=== PATIENT | male | born 1960 | race Hispanic/Latino ===

== ENCOUNTER 2017-10-11 21:06 | Emergency (ER) | payer OTHER ==
[2017-10-11 22:25] LABS: BASOPHILS % (AUTO) 0.9 % (0.0-5.0); EOSINOPHILS % (AUTO) 2.6 % (0.0-8.0); HEMATOCRIT 37.7 % (42-54); LYMPHOCYTES % (AUTO) 42.6 % (21.0-51.0); MEAN CORPUSCULAR HGB CONC 35.7 g/dL (32.0-36.0); MEAN CORPUSCULAR VOLUME 95.2 fL (79-99); MONOCYTES % (AUTO) 9.6 % (3.0-13.0); NEUTROPHILS % (AUTO) 44.3 % (40.0-77.0); PLATELET COUNT (AUTO) 203 K/uL (130-400); RED BLOOD CELL COUNT(AUTO) 3.96 MIL/uL (4.50-6.20); RED CELL DISTRIBUTION WIDTH 12.9 % (11.0-15.5); WHITE BLOOD COUNT (AUTO) 6.7 K/uL (4.8-10.8)
[2017-10-11 22:37] LABS: CREATININE 0.8 mg/dL (0.5-1.5); POTASSIUM 3.9 mmol/L (3.5-5.1)
[2017-10-11 22:48] LABS: ALBUMIN 3.6 g/dL (3.5-5.0); BILIRUBIN,TOTAL 0.2 mg/dL (0.2-1.0)
[2017-10-11 23:03] LABS: APPEARANCE,URINE Clear (CLEAR); BILIRUBIN,URINE Negative (NEGATIVE); COLOR,URINE Yellow (YELLOW); GLUCOSE, URINE (UA) Negative (NEGATIVE); KETONES,URINE Negative (NEGATIVE); LEUKOCYTE ESTERASE ,URINE Negative (NEGATIVE); NITRATE,URINE Negative (NEGATIVE); OCCULT BLOOD,URINE Negative (NEGATIVE); PROTEIN,URINE Negative (NEGATIVE); UROBILINOGEN,URINE 0.2 mg/dL (0.2-1.0)
== END 2017-10-11 23:52 | disposition home or self-care (01) ==
LOC: EDH 21:06
DX: R10.9 Unspecified abdominal pain (principal); Z98.890 Other specified postprocedural states
CPT/HCPCS: 36415; 74176; 80053; 81003; 83690; 85025

== ENCOUNTER 2022-03-21 16:16 | Inpatient (IN) | payer OTHER ==
[~2022-03-21] VITALS: Ht 175.3 cm; Wt 110.8 kg
[2022-03-21 16:43] LABS: BASOPHILS % (AUTO) 0.8 % (0.0-5.0); HEMATOCRIT 43.3 % (42-54); LYMPHOCYTES % (AUTO) 12.7 % (21.0-51.0); MEAN CORPUSCULAR HEMOGLOBIN 30.6 pg (27.0-33.0); MEAN CORPUSCULAR VOLUME 92.5 fL (79-99); MONOCYTES % (AUTO) 8.4 % (3.0-13.0); NEUTROPHILS % (AUTO) 72.3 % (40.0-77.0); NUCLEATED RED BLOOD CELLS 0.2 % (0.0-0.19); PLATELET COUNT (AUTO) 240 K/uL (130-400); RED BLOOD CELL COUNT(AUTO) 4.68 MIL/uL (4.50-6.20); RED CELL DISTRIBUTION WIDTH 12.7 % (11.0-15.5); WHITE BLOOD COUNT (AUTO) 11.8 K/uL (4.8-10.8)
[2022-03-21 16:53] LABS: CREATININE 0.8 mg/dL (0.5-1.5); POTASSIUM 3.8 mmol/L (3.5-5.1)
[2022-03-21 17:01] LABS: ALBUMIN 3.1 g/dL (3.5-5.0); MAGNESIUM 1.8 mg/dL (1.80-2.40); TOTAL PROTEIN, SERUM 7.4 g/dL (6.0-8.3)
[2022-03-21 17:12] LABS: B-TYPE NATRIURETIC PEPTIDE 82 pg/mL (0-100)
[2022-03-21 17:29] LABS: ABG BASE EXCESS -0.2 mmol/L (-2.0-3.0); ABG HCO3 24.2 mmol/L (21.0-28.0); ABG OXYGEN SATURATION 92.4 % (95.0-99.0); ABG PCO2 39 mmHg (35-48)
[2022-03-21] MEDS ORDERED: ASPIRIN 81MG CHEW TAB PO ONE ×2 (17:30→18:30)
[2022-03-21] MEDS ORDERED: FUROSEMIDE 40MG VIAL IV ONE ×2 (17:30→23:00)
[2022-03-21 17:45] LABS: APPEARANCE,URINE CLEAR (CLEAR); BILIRUBIN,URINE NEGATIVE (NEGATIVE); COLOR,URINE YELLOW (YELLOW); GLUCOSE, URINE (UA) NEGATIVE (NEGATIVE); KETONES,URINE NEGATIVE (NEGATIVE); LEUKOCYTE ESTERASE ,URINE NEGATIVE Leu/uL (NEGATIVE); NITRATE,URINE NEGATIVE (NEGATIVE); OCCULT BLOOD,URINE SMALL (NEGATIVE); PH,URINE 5.5 (5.0-8.0); PROTEIN,URINE 30 mg/dL (NEGATIVE); UROBILINOGEN,URINE 0.2 mg/dL (0.2-1.0)
[2022-03-21 17:47] LABS: MUCUS,URINE RARE LPF (None Seen); WBC,URINE 0-1 /HPF (0-1)
[2022-03-21 17:53] LABS: AMPHET/METH SCREEN,URINE NEGATIVE (NEGATIVE); BARBITURATE SCREEN, URINE NEGATIVE (NEGATIVE); BENZODIAZEPINES SCREEN,URINE NEGATIVE (NEGATIVE); CANNABINOID SCREEN,URINE NEGATIVE (NEGATIVE); COCAINE SCREEN,URINE NEGATIVE (NEGATIVE); OPIATE SCREEN,URINE NEGATIVE (NEGATIVE); PHENCYCLIDINE SCREEN,URINE NEGATIVE (NEGATIVE)
[2022-03-21] MEDS ORDERED: AZITHROMYCIN 250 MG TABLET PO ONE (18:00)
[2022-03-21] MEDS ORDERED: CEFTRIAXONE 1G VIAL IVP ONE (18:00)
[2022-03-21] MEDS ORDERED: MORPHINE 4 MG SYG IV PRN (18:30)
[2022-03-21] MEDS ORDERED: ACETAMINOPHEN 325 MG TAB PO PRN (18:30)
[2022-03-21] MEDS ORDERED: MORPHINE 2 MG SYG IV PRN (18:30)
[2022-03-21] MEDS ORDERED: ONDANSETRON 4MG INJ IV PRN (18:30)
[2022-03-21] MEDS ORDERED: LACTATED RINGERS IV ONE (18:30)
[2022-03-21] MEDS ORDERED: SOLU-MEDROL 125MG VIAL IVP ONE (18:30)
[2022-03-21] MEDS: NITROGLYCERIN 1GM OINT 1 INCH/1GM TD SCH (19:17)
[2022-03-21] MEDS ORDERED: IOHEXOL 350 MG/ML 100ML INFUS..BTL IV ONE (19:27)
[2022-03-21 21:10] VITALS: BP 166/127
[2022-03-21] MEDS: FAMOTIDINE 20MG VIAL IV SCH (21:36)
[2022-03-21] MEDS: DOXYCYCLINE 100MG+NS 250ML IV SCH (22:41)
[2022-03-21] MEDS ORDERED: LORAZEPAM 2 MG/ML 1 ML VIAL IM ONE (23:00)
[2022-03-22] VITALS (7 sets, daily range): BP systolic 154–176; BP diastolic 108–138
[2022-03-22] MEDS: SOLU-MEDROL 40MG VIAL IVP SCH ×3 (01:16→17:30)
[2022-03-22] MEDS: NITROGLYCERIN 1GM OINT 1 INCH/1GM TD SCH ×3 (04:06→17:32)
[2022-03-22 04:16] LABS: BASOPHILS % (AUTO) 0.3 % (0.0-5.0); EOSINOPHILS % (AUTO) 0.1 % (0.0-8.0); HEMATOCRIT 44.9 % (42-54); LYMPHOCYTES % (AUTO) 6.6 % (21.0-51.0); MEAN CORPUSCULAR HEMOGLOBIN 30.3 pg (27.0-33.0); MEAN CORPUSCULAR HGB CONC 32.3 g/dL (32.0-36.0); MEAN CORPUSCULAR VOLUME 93.7 fL (79-99); NEUTROPHILS % (AUTO) 90.7 % (40.0-77.0); PLATELET COUNT (AUTO) 266 K/uL (130-400); RED BLOOD CELL COUNT(AUTO) 4.79 MIL/uL (4.50-6.20); RED CELL DISTRIBUTION WIDTH 12.6 % (11.0-15.5); WHITE BLOOD COUNT (AUTO) 11.9 K/uL (4.8-10.8)
[2022-03-22 04:51] LABS: CREATININE 0.9 mg/dL (0.5-1.5); MAGNESIUM 1.6 mg/dL (1.80-2.40); PHOSPHORUS 4.2 mg/dL (2.5-4.9); POTASSIUM 3.9 mmol/L (3.5-5.1); THYROID STIMULATING HORMONE 1.81 uIU/mL (0.36-3.74)
[2022-03-22] MEDS: IPRATROPIUM/ALBUTEROL SULFATE 3 ML SOLUTION IH SCH ×4 (06:41→23:47)
[2022-03-22] MEDS ORDERED: MAGNESIUM 2GM PREMIX 50ML 50 ML IV ONE (08:28)
[2022-03-22] MEDS: DOXYCYCLINE 100MG+NS 250ML IV SCH ×2 (08:39→20:59)
[2022-03-22] MEDS: FAMOTIDINE 20MG VIAL IV SCH ×2 (08:42→19:58)
[2022-03-22] MEDS ORDERED: ENOXAPARIN SODIUM 40 MG/0.4 ML SYRINGE SQ SCH (09:00)
[2022-03-22] MEDS ORDERED: POTASSIUM CHLORIDE 10% ELIXIR 20 MEQ/15 ML UDCUP PO PRN (09:00)
[2022-03-22] MEDS ORDERED: ASPIRIN 81MG CHEW TAB PO SCH (09:00)
[2022-03-22] MEDS ORDERED: MAGNESIUM 2GM PREMIX 50ML 50 ML IV SCH (09:00)
[2022-03-22] MEDS ORDERED: LIDOCAINE HCL-MPF 1% 2ML VIAL IV PRN (09:00)
[2022-03-22] MEDS ORDERED: KCL 20 MEQ ERTAB PO PRN (09:00)
[2022-03-22] MEDS ORDERED: POTASSIUM CHLORIDE 20MEQ/100ML 100 ML IV PRN (09:00)
[2022-03-22] MEDS: GUAIFENESIN-DM 200/20 MG 10 ML PO PRN ×2 (09:12→15:35)
[2022-03-22] MEDS: CHLORDIAZEPOXIDE HCL 25 MG CAP PO SCH ×2 (15:30→19:58)
[2022-03-22] MEDS ORDERED: AMLODIPINE 5 MG TAB PO SCH ×2 (15:30→21:00)
[2022-03-22] MEDS ORDERED: AMLODIPINE 5 MG TAB ONE (15:34)
[2022-03-22] MEDS ORDERED: METOPROLOL TARTRATE 25 MG TAB PO SCH ×2 (18:00→21:00)
[2022-03-22] MEDS ORDERED: LOSARTAN 25 MG TABLET PO SCH (18:00)
[2022-03-22] MEDS ORDERED: CEFTRIAXONE 1G VIAL IVP SCH (18:00)
[2022-03-22] MEDS ORDERED: ACETAZOLAMIDE SODIUM 500 MG VIAL IV SCH (18:00)
[2022-03-22] MEDS ORDERED: GUAIFENESIN-CODEINE 5 ML SYRUP PO PRN (19:00)
[2022-03-22] MEDS ORDERED: BISACODYL 5 MG TABLET.DR PO SCH (21:00)
[2022-03-23] MEDS: SOLU-MEDROL 40MG VIAL IVP SCH (01:25)
[2022-03-23] MEDS: NITROGLYCERIN 1GM OINT 1 INCH/1GM TD SCH (01:26)
[2022-03-23 04:00] VITALS: BP 158/106
[2022-03-23 04:11] LABS: BASOPHILS % (AUTO) 0.1 % (0.0-5.0); HEMATOCRIT 44.7 % (42-54); LYMPHOCYTES % (AUTO) 6.4 % (21.0-51.0); MEAN CORPUSCULAR HEMOGLOBIN 30.5 pg (27.0-33.0); MEAN CORPUSCULAR HGB CONC 31.5 g/dL (32.0-36.0); MEAN CORPUSCULAR VOLUME 96.5 fL (79-99); MONOCYTES % (AUTO) 4.2 % (3.0-13.0); NEUTROPHILS % (AUTO) 87.7 % (40.0-77.0); PLATELET COUNT (AUTO) 251 K/uL (130-400); RED BLOOD CELL COUNT(AUTO) 4.63 MIL/uL (4.50-6.20)
[2022-03-23 04:38] LABS: ALBUMIN 3.2 g/dL (3.5-5.0); CREATININE 0.9 mg/dL (0.5-1.5); MAGNESIUM 2.1 mg/dL (1.80-2.40); POTASSIUM 3.7 mmol/L (3.5-5.1); TOTAL PROTEIN, SERUM 7.5 g/dL (6.0-8.3)
[2022-03-23 04:48] LABS: HEMOGLOBIN A1C 5.8 % (4.0-6.0)
[2022-03-23] MEDS ORDERED: CHLORDIAZEPOXIDE HCL 25 MG CAP ONE (04:53)
[2022-03-23] MEDS ORDERED: LORAZEPAM 2 MG/ML 1 ML VIAL ONE (04:54)
[2022-03-23] MEDS ORDERED: CHLORDIAZEPOXIDE HCL 25 MG CAP PO ONE (05:00)
[2022-03-23] MEDS ORDERED: LORAZEPAM 2 MG/ML 1 ML VIAL IM PRN (05:00)
[2022-03-23] MEDS: IPRATROPIUM/ALBUTEROL SULFATE 3 ML SOLUTION IH SCH (06:00)
[2022-03-23 07:55] VITALS: BP 147/64
[2022-03-23] MEDS ORDERED: LOSARTAN 25 MG TABLET PO SCH (09:00)
[2022-03-23] MEDS ORDERED: CHLORDIAZEPOXIDE HCL 25 MG CAP PO SCH (09:00)
[2022-03-23] MEDS ORDERED: AMLODIPINE 5 MG TAB PO SCH (09:00)
== END 2022-03-23 06:24 | disposition left against medical advice (07) | DRG 871 ==
LOC: EDH 16:16 → EDHIP 16:17 → 2DH 20:46
PROVIDERS: ADMIT Internal Medicine; ATTEND Internal Medicine
DX: A41.9 Sepsis, unspecified organism (principal); I21.A1 Myocardial infarction type 2; J18.9 Pneumonia, unspecified organism; Z20.822 Contact with and (suspected) exposure to COVID-19; J96.01 Acute respiratory failure with hypoxia; J91.8 Pleural effusion in other conditions classified elsewhere; R65.20 Severe sepsis without septic shock; F10.20 Alcohol dependence, uncomplicated; I10 Essential (primary) hypertension; Z53.29 Procedure and treatment not carried out because of patient's decision for other reasons; Z51.5 Encounter for palliative care; Z79.82 Long term (current) use of aspirin; Z79.899 Other long term (current) drug therapy; Z86.16 Personal history of COVID-19; Z99.81 Dependence on supplemental oxygen
CPT/HCPCS: 36415; 36600; 71045; 71270; 80048; 80053; 80305; 81001; 82803; 82948; 83036; 83605; 83735; 83880; 84100; 84145; 84443; 84484; 85025; 86140; 87040; 87635; 87804; 93005; 94640; 94660; 94664; 99291; C9803; G0378; J0696; J1120; J1650; J1940; J2060; J2920; J2930; J3475; J3490; Q9967